=== PATIENT | female | born 1950 | race Caucasian/White ===

== ENCOUNTER 2018-08-18 09:39 | Day surgery (SDC) | payer OTHER ==
[2018-08-18 10:28] VITALS: BMI 21.2
[2018-08-18 23:09] VITALS: BP 131/60; PULSE 72; TEMP 98.3
== END 2018-08-19 00:31 | disposition home or self-care (01) ==
LOC: MERGE 09:39 → FBLOOD 09:39 → FM/S 09:40 → FBLOOD 08-19 00:31
PROVIDERS: ATTEND Internal Medicine Hematology & Oncology
PROC: 30243N1 Transfusion of Nonautologous Red Blood Cells into Central Vein, Percutaneous Approach (ICD-10-PCS; principal; 2018-08-18)
DX: C85.90 Non-Hodgkin lymphoma, unspecified, unspecified site (principal)
CPT/HCPCS: 36430; 86850; 86900; 86901; 86922; P9038; P9058

== ENCOUNTER 2018-10-25 09:33 | Day surgery (SDC) | payer OTHER ==
[2018-10-25 11:50] VITALS: TEMP 98.4
[2018-10-25 17:25] VITALS: BP 105/52; PULSE 72
== END 2018-10-25 19:00 | disposition home or self-care (01) ==
LOC: FBLOOD 09:33 → FM/S 09:34 → FBLOOD 19:00
PROVIDERS: ATTEND Internal Medicine Hematology & Oncology
PROC: 30233N1 Transfusion of Nonautologous Red Blood Cells into Peripheral Vein, Percutaneous Approach (ICD-10-PCS; principal; 2018-10-25)
DX: D64.9 Anemia, unspecified (principal); C85.90 Non-Hodgkin lymphoma, unspecified, unspecified site
CPT/HCPCS: 36430; P9038; P9058

== ENCOUNTER 2018-12-21 09:16 | Day surgery (SDC) | payer OTHER ==
[2018-12-21 09:50] VITALS: BMI 19.3
[2018-12-21 20:17] VITALS: BP 115/58; PULSE 77; TEMP 98.8
== END 2018-12-21 22:30 | disposition home or self-care (01) ==
LOC: FBLOOD 09:16 → FM/S 09:17 → FBLOOD 22:30
PROVIDERS: ATTEND Internal Medicine Hematology & Oncology
PROC: 30233N1 Transfusion of Nonautologous Red Blood Cells into Peripheral Vein, Percutaneous Approach (ICD-10-PCS; principal; 2018-12-21)
DX: C85.90 Non-Hodgkin lymphoma, unspecified, unspecified site (principal)
CPT/HCPCS: 36430; 36511; P9038; P9058